=== PATIENT | female | born 1980 ===

== ENCOUNTER 2017-01-22 12:02 | Emergency (ER) | payer MEDICAID ==
[2017-01-22 12:12] VITALS: BP 107/74; PULSE 84; RESP 20; TEMP 98.3; O2SAT 97
[2017-01-22] MEDS ORDERED: DiphenhydrAMINE 50 mg/ml Inj IM STA (12:32)
--- NOTE | 2017-01-22 12:33 | ED PDOC ---
HPI: Skin/Bite Injury Time Seen by Provider: 01/22/17 12:24 Chief Complaint (Nursing): Cough, Cold, Congestion Chief Complaint (Provider): Rash History Per: Patient History/Exam Limitations: no limitations Onset/Duration Of Symptoms: Sudden Onset (yesterday) Current Symptoms Are (Timing): Still Present Additional Complaint(s): Chelsea is a 36 y/o female who presents to the ED for evaluation of an allergic reaction. Reports cough productive of green for 1 week. Yesterday, she returned from [place], where she had been using hotel shampoo and lotions. Patient states that last night she had a sudden onset of burning type rash throughout her body, and pruritus localized to the posterior neck. States shes been taking Dayquil and Nyquil for her cough. She has not tried any other medications , nor new foods. Denies fever, shortness of breath, chest pain, and hemoptysis. PMD: Rebecca Ferrell Past Medical History Reviewed: Historical Data, Nursing Documentation, Vital Signs Vital Signs: Last Vital Signs Temp 98.3 F 01/22/17 12:11 Pulse 84 01/22/17 12:11 Resp 20 01/22/17 12:11 BP 107/74 01/22/17 12:11 Pulse Ox 97 01/22/17 12:36 - Medical History PMH: No Chronic Diseases - Surgical History Other surgeries: tubal ligation - Family History Family History: States: Unknown Family Hx - Home Medications Home Medications: Ambulatory Orders Medication Instructions Recorded Benzonatate [Tessalon Perle] 100 mg PO Q8 PRN #30 capsule 01/22/17 DiphenhydrAMINE [Benadryl] 50 mg PO Q6 PRN #30 cap 01/22/17 Methylprednisolone [Medrol Dose 4 mg PO DAILY #21 mg 01/22/17 Pack (21 tabs)] - Allergies Allergies/Adverse Reactions: Allergies Allergy/AdvReac Type Severity Reaction Status Date / Time No Known Allergies Allergy Verified 01/22/17 12:12 Review of Systems ROS Statement: Except As Marked, All Systems Reviewed And Found Negative Constitutional: Negative for: Fever Cardiovascular: Negative for: Chest Pain Respiratory: Positive for: Cough, Sputum. Negative for: Shortness of Breath, Hemoptysis Skin: Positive for: Rash Physical Exam - Reviewed Nursing Documentation Reviewed: Yes Vital Signs Reviewed: Yes - Physical Exam Appears: Positive for: Well, Non-toxic, No Acute Distress Head Exam: Positive for: ATRAUMATIC, NORMAL INSPECTION, NORMOCEPHALIC Skin: Positive for: Warm, Dry, Rash (Diffuse erythematous urticarial rash throughout entire body with blanching. No vesicles) Eye Exam: Positive for: EOMI, Normal appearance, PERRL ENT: Positive for: Normal ENT Inspection. Negative for: Pharyngeal Erythema, Tonsillar Swelling Neck: Positive for: Normal, Painless ROM, Supple Cardiovascular/Chest: Positive for: Regular Rate, Rhythm Respiratory: Positive for: Normal Breath Sounds. Negative for: Respiratory Distress Gastrointestinal/Abdominal: Positive for: Normal Exam, Soft. Negative for: Tenderness, Organomegaly Extremity: Positive for: Normal ROM. Negative for: Deformity Neurologic/Psych: Positive for: Alert, Oriented - ECG O2 Sat by Pulse Oximetry: 97 (RA) Pulse Ox Interpretation: Normal - Radiology X-Ray: Interpreted by Me (CXR) X-Ray Interpretation: No Acute Disease - Progress ED Course And Treament: Rapid strep screen: negative Re-evaluation Time: 13:08 (No distress. Denies SOB, throat swelling. ) Condition: Re-examined, Improving,but remains with symptoms Medical Decision Making Medical Decision Making: Time: 12:31 Initial Plan: --Urine --Rapid strep test --Chest X-Ray --Patient given Benadryl IM and Prednisone PO Scribe Attestation: Documented by Mona Ford, acting as a scribe for Macho Saleh PA-C Provider Scribe Attestation: All medical record entries made by the Scribe were at my direction and personally dictated by me. I have reviewed the chart and agree that the record accurately reflects my personal performance of the history, physical exam, medical decision making, and the department course for this patient. I have also personally directed, reviewed, and agree with the discharge instructions and disposition. Disposition - Clinical Impression Clinical Impression: Upper respiratory infection, Urticaria - Patient ED Disposition Is Patient to be Admitted: No - Disposition Disposition: Routine/Home Disposition Time: 13:09 Condition: STABLE Prescriptions: Benzonatate [Tessalon Perle] 100 mg PO Q8 PRN #30 capsule PRN Reason: Cough DiphenhydrAMINE [Benadryl] 50 mg PO Q6 PRN #30 cap PRN Reason: itching or rash Methylprednisolone [Medrol Dose Pack (21 tabs)] 4 mg PO DAILY #21 mg Instructions: Upper Respiratory Infection (ED) Forms: [facility] ([place]) Print Language: TURKISH
[2017-01-22] MEDS ORDERED: DiphenhydrAMINE 50 mg/ml Inj ONE (12:34)
--- NOTE | 2017-01-22 13:34 | RAD ---
HISTORY: cough COMPARISON: No prior. TECHNIQUE: Chest PA and lateral FINDINGS: LUNGS: No active pulmonary disease. PLEURA: No significant pleural effusion identified. No pneumothorax apparent. CARDIOVASCULAR: Normal. OSSEOUS STRUCTURES: No significant abnormalities. VISUALIZED UPPER ABDOMEN: Normal. OTHER FINDINGS: None. IMPRESSION: No active disease.
== END 2017-01-22 13:21 | disposition home or self-care (01) ==
LOC: H.ER 12:02
DX: L50.9 Urticaria, unspecified (principal); J06.9 Acute upper respiratory infection, unspecified
CPT/HCPCS: 71020; 81025; 87070; 87430; 96372; 99282; J1200

== ENCOUNTER 2017-02-01 09:30 | Emergency (ER) | payer MEDICAID ==
[2017-02-01 10:19] VITALS: BP 121/80; PULSE 73; RESP 18; TEMP 97; O2SAT 98
--- NOTE | 2017-02-01 10:46 | ED PDOC ---
HPI: CCC, URI, Sore Throat Time Seen by Provider: 02/01/17 10:10 Chief Complaint (Nursing): ENT Problem Chief Complaint (Provider): Cold History Per: Patient History/Exam Limitations: no limitations Onset/Duration Of Symptoms: Days (chronic (1 month)) Current Symptoms Are (Timing): Still Present Additional Complaint(s): Chelsea Lucio is a 36 year old female presenting to the ED for an evaluation of a chronic cold occurring for 1 month prior to arrival. The patient states she has associated nasal congestion, sore throat, and hives for which she was seen by her PMD last week and had blood work completed. She is still waiting for the results. The patient denies fever, cough, vomiting, and shortness of breath. PMD: Rebecca Ferrell MD Past Medical History Reviewed: Historical Data, Nursing Documentation, Vital Signs Vital Signs: Last Vital Signs Temp 97.0 F L 02/01/17 10:14 Pulse 73 02/01/17 10:14 Resp 18 02/01/17 10:14 BP 121/80 02/01/17 10:14 Pulse Ox 98 02/01/17 10:48 - Medical History PMH: No Chronic Diseases - Family History Family History: States: Unknown Family Hx - Social History Current smoker - smoking cessation education provided: No Ex-Smoker (has not smoked in the last 12 months): No Alcohol: None Drugs: Denies - Home Medications Home Medications: Ambulatory Orders Medication Instructions Recorded Benzonatate [Tessalon Perle] 100 mg PO Q8 PRN #30 capsule 01/22/17 DiphenhydrAMINE [Benadryl] 50 mg PO Q6 PRN #30 cap 01/22/17 Methylprednisolone [Medrol Dose 4 mg PO DAILY #21 mg 01/22/17 Pack (21 tabs)] Loratadine/Pseudoephedrine 1 each PO DAILY PRN #7 tab.er.24h 02/01/17 [Claritin-D 24 Hour Tablet] - Allergies Allergies/Adverse Reactions: Allergies Allergy/AdvReac Type Severity Reaction Status Date / Time No Known Allergies Allergy Verified 01/22/17 12:12 Review of Systems ROS Statement: Except As Marked, All Systems Reviewed And Found Negative Constitutional: Positive for: Other (hives). Negative for: Fever ENT: Positive for: Nose Congestion, Throat Pain Respiratory: Negative for: Cough, Shortness of Breath Gastrointestinal: Negative for: Vomiting Physical Exam - Reviewed Nursing Documentation Reviewed: Yes Vital Signs Reviewed: Yes - Physical Exam Appears: Positive for: Non-toxic, No Acute Distress Head Exam: Positive for: ATRAUMATIC, NORMOCEPHALIC Skin: Positive for: Normal Color, Warm, Dry Eye Exam: Positive for: Normal appearance ENT: Positive for: Normal ENT Inspection Neck: Positive for: Normal Cardiovascular/Chest: Positive for: Regular Rate, Rhythm, Chest Non Tender Respiratory: Positive for: Normal Breath Sounds. Negative for: Respiratory Distress Gastrointestinal/Abdominal: Positive for: Normal Exam Neurologic/Psych: Positive for: Alert, Oriented. Negative for: Motor/Sensory Deficits - ECG O2 Sat by Pulse Oximetry: 98 (RA) Pulse Ox Interpretation: Normal Medical Decision Making Medical Decision Making: Time: 10:10 Impression: Chronic cold Scribe Attestation: Documented by Qiana Reese, acting as a scribe for Mirna Nieves MD. Provider Scribe Attestation: All medical record entries made by the Scribe were at my direction and personally dictated by me. I have reviewed the chart and agree that the record accurately reflects my personal performance of the history, physical exam, medical decision making, and the department course for this patient. I have also personally directed, reviewed, and agree with the discharge instructions and disposition. Disposition - Clinical Impression Clinical Impression: Allergic symptoms - Disposition Disposition: Routine/Home Disposition Time: 11:42 Condition: STABLE Additional Instructions: FOLLOW-UP WITH PMD WITHIN 2 DAYS FOR REEVALUATION. Prescriptions: Loratadine/Pseudoephedrine [Claritin-D 24 Hour Tablet] 1 each PO DAILY PRN #7 tab.er.24h PRN Reason: Allergy Symptoms Instructions: Allergies (ED) Forms: [facility] ([place])
== END 2017-02-01 11:47 | disposition home or self-care (01) ==
LOC: H.ER 09:30
DX: T78.40XA Allergy, unspecified, initial encounter (principal); X58.XXXA Exposure to other specified factors, initial encounter